=== PATIENT | male | born 1970 | race American Indian/Alaskan Native ===

== ENCOUNTER 2017-09-20 13:45 | Emergency (ER) | payer MEDICARE, MEDICAID ==
[~2017-09-20] VITALS: Ht 165.1 cm; Wt 124.0 kg
[~2017-09-20 13:45] MED LIST: ARIP15TA3 PO; ATOR20TA PO; DIPH-423 PO; ESCI20TA29 PO; IBUP-1984 PO; MICO90PO TOP; OMEP-84 PO
[2017-09-20 14:08] VITALS: BP 130/93
[2017-09-20 14:33] LABS: CLARITY,URINE CLEAR (Clear); COLOR,URINE YELLOW (Yellow); GLUCOSE, URINE NEGATIVE (Neg); KETONES,URINE NEGATIVE (Neg); LEUKOCYTE ESTERASE ,URINE NEGATIVE (Neg); NITRITES, URINE NEGATIVE (Neg); OCCULT BLOOD,URINE NEGATIVE (Neg); PROTEIN,URINE NEGATIVE (Neg); UA COLLECTION TYPE CLN CATCH MIDSTREAM; UROBILINOGEN,URINE 0.2 E.U/dL (0.2-1.0)
== END 2017-09-20 16:13 | disposition home or self-care (01) ==
LOC: ER 13:46
DX: R10.30 Lower abdominal pain, unspecified (principal); M62.838 Other muscle spasm; F17.200 Nicotine dependence, unspecified, uncomplicated; Z88.0 Allergy status to penicillin; Z88.2 Allergy status to sulfonamides; Z79.899 Other long term (current) drug therapy
CPT/HCPCS: 81003; 99283

== ENCOUNTER 2018-04-15 18:10 | Emergency (ER) | payer MEDICARE, MEDICAID ==
[~2018-04-15] VITALS: Ht 162.6 cm; Wt 120.4 kg
[2018-04-15 18:59] LABS: BASOPHILS # (AUTO) 0.1 X10'3 (0-0.2); BASOPHILS % (AUTO) 1.2 % (0-1); EOSINOPHILS # (AUTO) 0.2 X10'3 (0-0.9); EOSINOPHILS % (AUTO) 3.6 % (0-6); HEMATOCRIT 42.1 % (42.0-52.0); HEMOGLOBIN 14.4 g/dl (14.0-17.9); LYMPHOCYTES # (AUTO) 2.2 X10'3 (1.1-4.8); MEAN CORPUSCULAR HEMOGLOBIN 30.4 PG (27.0-31.0); MEAN CORPUSCULAR HGB CONC 34.3 g/dL (33.0-36.5); MEAN CORPUSCULAR VOLUME 88.7 FL (78-98); MEAN PLATELET VOLUME 7.5 FL (7.4-10.4); MONOCYTES # (AUTO) 0.3 X10'3 (0-0.9); MONOCYTES % (AUTO) 4.7 % (2-12); NEUTROPHILS # (AUTO) 3.9 X10'3 (1.8-7.7); NEUTROPHILS % (AUTO) 57.5 % (42-75); PLATELET COUNT 281 X10'3 (140-440); RED BLOOD COUNT 4.74 X10'6 (4.70-6.10); RED CELL DISTRIBUTION WIDTH 13.9 % (11.5-14.5); WHITE BLOOD COUNT 6.8 X10'3 (4.5-11.0)
[2018-04-15 19:15] LABS: ALANINE AMINOTRANSFERASE 44 U/L (12-78); ALBUMIN 3.7 G/DL (3.4-5.0); ALKALINE PHOSPHATASE 151 IU/L (46-116); ANION GAP 8 (8-16); ASPARTATE AMINO TRANSFERASE 27 U/L (10-37); BILIRUBIN,TOTAL 0.3 MG/DL (0.1-1.0); BLOOD UREA NITROGEN 14 MG/DL (7-18); CALCIUM 8.7 MG/DL (8.5-10.1); CHLORIDE 103 MMOL/L (99-107); CREATININE 1.17 MG/DL (0.60-1.10); GLUCOSE 76 MG/DL (70-104); POTASSIUM 3.7 MMOL/L (3.5-5.1); SODIUM 139 MMOL/L (135-145); TOTAL CARBON DIOXIDE 28.4 MMOL/L (24-32); TOTAL PROTEIN 7.5 G/DL (6.4-8.2); eGFR 67 ML/MIN
[2018-04-15 19:16] LABS: PARTIAL THROMBOPLASTIN TIME 27 SECONDS (22-32)
[2018-04-15 20:30] LABS: D-DIMER 0.59 MG/L FEU (0-0.50)
[2018-04-15] MEDS ORDERED: iohexol 350MG/ML 100ml bottle IV ONE (21:08)
--- NOTE | 2018-04-15 21:08 | NUR ---
dr begum at bedside and reports pt with elevated ddimer and will need a ct with contrast of his chest. piv now in placed, 3 hr trop drawn. pt is polite and cooperative and with stable vs. caregiver, arnulfo, at bedside.
[2018-04-15] MEDS ORDERED: ibuprofen tablet 400 MG TABLET PO ONE (21:15)
--- NOTE | 2018-04-15 21:25 | NUR ---
pt with low back pain (chronic low back pain from back surgery) . he reports the gurney is exacerbating it. pt takes ibuprofen at home and requests a dose. dr. begum ordering this.
[2018-04-15 22:02] VITALS: BP 133/83
--- NOTE | 2018-04-15 22:03 | NUR ---
relieving RN for lunch, pt is resting quietly on gurney, resp even and unlabored, friend at bedside
[2018-04-15] MEDS ORDERED: acetaminophen 325mg tablet PO ONE (22:25)
== END 2018-04-15 22:55 | disposition home or self-care (01) ==
LOC: ER 18:11
DX: R91.1 Solitary pulmonary nodule (principal); R07.89 Other chest pain; F17.210 Nicotine dependence, cigarettes, uncomplicated; J45.909 Unspecified asthma, uncomplicated; Z88.2 Allergy status to sulfonamides; Z88.0 Allergy status to penicillin; Z79.899 Other long term (current) drug therapy
CPT/HCPCS: 36415; 71045; 71275; 80053; 84484; 85025; 85379; 85610; 85730; 93005; 99284; 99406; Q9967

== ENCOUNTER 2019-03-05 15:14 | Emergency (ER) | payer MEDICARE, MEDICAID ==
[~2019-03-05] VITALS: Ht 162.6 cm; Wt 127.3 kg
[~2019-03-05 15:14] MED LIST changes: +HC A30CR2 RC
[2019-03-05 15:19] VITALS: BP 158/110
[2019-03-05] MEDS ORDERED: CYCL-1 PO (17:07)
[2019-03-05] MEDS ORDERED: IBUP-1984 PO (17:07)
== END 2019-03-05 17:16 | disposition home or self-care (01) ==
LOC: ER 15:14
DX: M54.2 Cervicalgia (principal); R51 Headache; J45.909 Unspecified asthma, uncomplicated; R42 Dizziness and giddiness; Z88.2 Allergy status to sulfonamides; Z88.0 Allergy status to penicillin; Z79.899 Other long term (current) drug therapy; V49.88XA Car occupant (driver) (passenger) injured in other specified transport accidents, initial encounter; Y93.89 Activity, other specified; Y92.413 State road as the place of occurrence of the external cause; Y99.9 Unspecified external cause status
CPT/HCPCS: 70450; 72125; 99284

== ENCOUNTER 2020-12-07 09:25 | Emergency (ER) | payer MEDICARE, MEDICAID ==
[~2020-12-07] VITALS: Ht 182.9 cm; Wt 127.0 kg
[~2020-12-07 09:25] MED LIST changes: +BUPR-317 PO; +BUSP10TA10 PO; -DIPH-423 PO; +DOCU100C41 PO; +DULO60CA65 PO; -ESCI20TA29 PO; +FAMO20TA8 PO; +FEXO-62 PO; -HC A30CR2 RC; +HYDR-3927 PO; -IBUP-1984 PO; +MELO-100 PO; -MICO90PO TOP; +MONT10TA32 PO
[2020-12-07 09:42] VITALS: BP 144/87
[2020-12-07] MEDS ORDERED: BENZ-16 PO (10:37)
== END 2020-12-07 10:57 | disposition home or self-care (01) ==
LOC: ER 09:26
DX: B34.9 Viral infection, unspecified (principal); Z20.822 Contact with and (suspected) exposure to COVID-19; J45.909 Unspecified asthma, uncomplicated; F17.210 Nicotine dependence, cigarettes, uncomplicated; Z88.2 Allergy status to sulfonamides; Z88.0 Allergy status to penicillin; Z79.899 Other long term (current) drug therapy
CPT/HCPCS: 36415; 99283; U0003; U0005

== ENCOUNTER 2022-12-23 14:41 | Emergency (ER) | payer OTHER, MEDICARE, MEDICAID ==
[~2022-12-23] VITALS: Ht 160 cm; Wt 180.0 kg
[~2022-12-23 14:41] MED LIST changes: +BENZ-16 PO; +FEXO-310 PO; -FEXO-62 PO; +MONT-40 PO; -MONT10TA32 PO
[2022-12-23 15:05] VITALS: TEMP 97
[2022-12-23] MEDS ORDERED: ketorolac trometh. 30mg/ml inj. IV ONE (20:55)
[2022-12-23 21:54] VITALS: BP 122/86; PULSE 73; RESP 16; O2SAT 96
== END 2022-12-23 22:02 | disposition home or self-care (01) ==
LOC: ER 14:42
DX: S16.1XXA Strain of muscle, fascia and tendon at neck level, initial encounter (principal); S39.012A Strain of muscle, fascia and tendon of lower back, initial encounter; V49.9XXA Car occupant (driver) (passenger) injured in unspecified traffic accident, initial encounter; Y93.89 Activity, other specified; Y92.89 Other specified places as the place of occurrence of the external cause; Y99.8 Other external cause status
CPT/HCPCS: 72125; 72131; 96374; 99285; J1885

== ENCOUNTER 2024-01-13 23:08 | Emergency (ER) | payer MEDICARE, MEDICAID ==
[~2024-01-13] VITALS: Ht 160 cm; Wt 112.2 kg
[~2024-01-13 23:08] MED LIST changes: -BUPR-317 PO; +BUPR-561 PO
[2024-01-13 23:24] VITALS: BP 145/76; PULSE 125; RESP 22; TEMP 98.4; O2SAT 95
[2024-01-13 23:59] LABS: BASOPHILS % (AUTO) 0.1 % (0-1); EOSINOPHILS % (AUTO) 0.2 % (0-6); HEMATOCRIT 42.4 % (42.0-52.0); HEMOGLOBIN 14.1 g/dl (14.0-17.9); LYMPHOCYTES # (AUTO) 1.1 X10'3 (1.1-4.8); LYMPHOCYTES % (AUTO) 5.4 % (21-51); MEAN CORPUSCULAR HEMOGLOBIN 29.5 PG (27.0-31.0); MEAN CORPUSCULAR HGB CONC 33.2 g/dL (33.0-36.5); MEAN CORPUSCULAR VOLUME 88.8 FL (78-98); MONOCYTES # (AUTO) 1.6 X10'3 (0-0.9); MONOCYTES % (AUTO) 8.3 % (2-12); NEUTROPHILS # (AUTO) 17.1 X10'3 (1.8-7.7); PLATELET COUNT 314 X10'3 (140-440); RED BLOOD COUNT 4.78 X10'6 (4.70-6.10); RED CELL DISTRIBUTION WIDTH 14.2 % (11.5-14.5); WHITE BLOOD COUNT 19.8 X10'3 (4.5-11.0)
[2024-01-14 00:09] LABS: ANION GAP 15 (8-16); BLOOD UREA NITROGEN 45 MG/DL (7-18); BUN/CREATININE RATIO 17.4 (10.0-20.0); CALCIUM 9.3 MG/DL (8.5-10.1); CHLORIDE 96 MMOL/L (99-107); CREATININE 2.59 MG/DL (0.60-1.10); GLUCOSE 126 MG/DL (70-104); POTASSIUM 3.8 MMOL/L (3.5-5.1); SODIUM 130 MMOL/L (135-145); TOTAL CARBON DIOXIDE 19.4 MMOL/L (24-32); eCRCL 27 ML/MIN; eGFR 26 ML/MIN
[2024-01-14 00:44] LABS: ALBUMIN 1.6 G/DL (3.4-5.0)
[2024-01-14] MEDS ORDERED: OMEP20CA16 PO (10:30)
[2024-01-14] MEDS ORDERED: HYDR-3686 PO (10:30)
[2024-01-14] MEDS ORDERED: ARIP20TA63 PO (10:30)
[2024-01-14] MEDS ORDERED: ATOR20TA66 PO (10:30)
[2024-01-14] MEDS ORDERED: BUSP15TA3 PO (10:30)
[2024-01-14] MEDS ORDERED: MELO-102 PO (10:30)
[2024-01-14] MEDS ORDERED: LISI5TAB22 PO (10:30)
== END 2024-01-14 03:11 | disposition left against medical advice (07) ==
LOC: ER 23:08
DX: R19.7 Diarrhea, unspecified (principal); R11.0 Nausea; Z53.21 Procedure and treatment not carried out due to patient leaving prior to being seen by health care provider
CPT/HCPCS: 36415; 80048; 85025

== ENCOUNTER 2024-04-26 18:11 | Emergency (ER) | payer MEDICARE, MEDICAID ==
[~2024-04-26] VITALS: Ht 160 cm; Wt 114.0 kg
[~2024-04-26 18:11] MED LIST changes: -ARIP15TA3 PO; +ARIP20TA63 PO; -ATOR20TA PO; +ATOR20TA66 PO; -BENZ-16 PO; -BUSP10TA10 PO; +BUSP15TA3 PO; -DOCU100C41 PO; -FEXO-310 PO; +HYDR-3686 PO; -HYDR-3927 PO; +LISI5TAB22 PO; -MELO-100 PO; +MELO-102 PO; -OMEP-84 PO; +OMEP20CA16 PO
[2024-04-26 20:13] VITALS: BP 136/101; PULSE 99; RESP 18; TEMP 98.6; O2SAT 99
== END 2024-04-26 20:18 | disposition home or self-care (01) ==
LOC: ER 18:12
DX: Z43.3 Encounter for attention to colostomy (principal); J45.909 Unspecified asthma, uncomplicated; F41.9 Anxiety disorder, unspecified; F32.A Depression, unspecified; Z88.0 Allergy status to penicillin; Z88.2 Allergy status to sulfonamides
CPT/HCPCS: 99281; A4421

== ENCOUNTER 2024-05-06 09:39 | Emergency (ER) | payer MEDICARE, MEDICAID ==
[~2024-05-06] VITALS: Ht 160 cm; Wt 112.9 kg
[2024-05-06 11:06] LABS: BILIRUBIN,URINE NEGATIVE (Neg); CLARITY,URINE CLEAR (Clear); COLOR,URINE YELLOW (Yellow); GLUCOSE, URINE NEGATIVE (Neg); KETONES,URINE NEGATIVE (Neg); LEUKOCYTE ESTERASE ,URINE NEGATIVE (Neg); NITRITES, URINE NEGATIVE (Neg); OCCULT BLOOD,URINE LARGE (Neg); PROTEIN,URINE NEGATIVE (Neg); UROBILINOGEN,URINE 0.2 E.U/dL (0.2-1.0)
[2024-05-06 11:09] LABS: UA COLLECTION TYPE STRAIGHT CATH
[2024-05-06 11:14] LABS: BACTERIA,URINE NONE SEEN /HPF (Neg); MUCUS STRANDS NONE SEEN /LPF (Neg); SQUAMOUS EPITHELIAL CELL,UR NONE SEEN /LPF (FEW)
[2024-05-06] MEDS ORDERED: LEVO-65 PO (11:21)
[2024-05-06] MEDS: LidoCAINE 2% Topical Jelly 11mL syringe (UROJET) TOP ONE (12:11)
[2024-05-06 12:37] VITALS: BP 124/60; PULSE 81; RESP 16; TEMP 98.6; O2SAT 99
== END 2024-05-06 12:40 | disposition home or self-care (01) ==
LOC: ER 09:40
DX: R33.9 Retention of urine, unspecified (principal); J45.909 Unspecified asthma, uncomplicated; Z88.2 Allergy status to sulfonamides; Z88.0 Allergy status to penicillin; Z79.899 Other long term (current) drug therapy
CPT/HCPCS: 51702; 81001; 87088; 99284; A4314; A4358; C1758